=== PATIENT | male | born 1980 | race Two or more races ===

== ENCOUNTER 2024-01-03 05:01 | Emergency (ER) | payer SELFPAY ==
[~2024-01-03] VITALS: Ht 175.3 cm; Wt 83.9 kg
[2024-01-03 05:57] LABS: BASOPHILS % (AUTO) 0.5 % (0.0-2.0); EOSINOPHILS % (AUTO) 0.2 % (0.0-6.0); HEMATOCRIT 42 % (39-51); HEMOGLOBIN 14.3 g/dL (13.5-17.5); LYMPHOCYTES # (AUTO) 1.7 K/uL (0.8-4.8); LYMPHOCYTES % (AUTO) 27.4 % (20.0-44.0); MEAN CORPUSCULAR HEMOGLOBIN 30 PG (26.0-33.0); MEAN CORPUSCULAR HGB CONC 34 g/dl (31.0-36.0); MEAN CORPUSCULAR VOLUME 87 fL (80-96); MONOCYTES # (AUTO) 0.4 K/uL (0.1-1.30); MONOCYTES % (AUTO) 6.7 % (2.0-12.0); NEUTROPHILS % (AUTO) 65.2 % (43.0-81.0); PLATELET COUNT (AUTO) 229 K/uL (150-450); RED BLOOD CELL COUNT(AUTO) 4.85 MIL/uL (4.5-6.0); RED CELL DISTRIBUTION WIDTH 13.8 % (11.5-15.0); WHITE BLOOD COUNT (AUTO) 6.2 K/uL (4.3-11.0)
[2024-01-03] MEDS ORDERED: LORAZEPAM INJ 2 MG/ML VIAL ONE (06:21)
[2024-01-03 06:22] LABS: CALCIUM, SERUM 9.4 mg/dL (8.5-10.1); CARBON DIOXIDE 23 mmol/L (21-32); CHLORIDE 104 mmol/L (98-107); CREATININE 0.9 mg/dL (0.6-1.3); GLUCOSE 87 mg/dL (74-106); POTASSIUM 3.5 mmol/L (3.5-5.1); SODIUM SERUM 140 mmol/L (136-145); UREA NITROGEN, BLOOD 6 mg/dL (7-18)
[2024-01-03] MEDS: LORAZEPAM INJ 2 MG/ML VIAL IV ONE (06:28)
[2024-01-03] MEDS: IV NS 0.9% 1,000 ML BAG IV ONE (06:28)
[2024-01-03 06:54] LABS: AMPHETAMINE, URINE NEGATIVE (NEGATIVE); BARBITURATE, URINE NEGATIVE (NEGATIVE); BENZODIAZEPINE, URINE NEGATIVE (NEGATIVE); CANNABINOID, URINE NEGATIVE (NEGATIVE); COCCAINE, URINE NEGATIVE (NEGATIVE); OPIATE, URINE NEGATIVE (NEGATIVE); PHENCYCLIDINE SCREEN,URINE NEGATIVE (NEGATIVE)
[2024-01-03 09:02] VITALS: BP 141/97; TEMP 98.3; O2SAT 99
== END 2024-01-03 09:02 | disposition home or self-care (01) ==
LOC: ER 05:03
DX: R00.2 Palpitations (principal); R06.02 Shortness of breath; F14.10 Cocaine abuse, uncomplicated; F10.10 Alcohol abuse, uncomplicated
CPT/HCPCS: 99285; 96374; 96361; 93005 ×3; 71045; 85025; 80048; 36415; 84484 ×2; 80320; 80307; J2060; J7030; G0480